=== PATIENT | female | born 1995 | race African-American/Black ===

== ENCOUNTER 2020-06-06 05:10 | Emergency (ER) | payer OTHER ==
[~2020-06-06] VITALS: Ht 165.1 cm; Wt 86.5 kg
[2020-06-06 05:15] VITALS: BP 137/86
--- NOTE | 2020-06-06 05:32 | PHYS DOC ---
Adult General HPI HPI Patient is an otherwise healthy 25-year-old female who presents with a chief complaint of Covid exposure. 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 States she has been on quarantine. States over the last couple of days she has had some body aches and had one bout of nonbilious nonbloody emesis. Denies headache, fever, cough, chest pain, shortness of breath, abdominal pain, diarrhea, dysuria, hematuria or blood in the stool. States she had taken any medicines at home for this. Review of Systems Review of Systems Review of systems otherwise unremarkable except noted in HPI. Physical Exam Physical Exam Constitutional: Well developed, well nourished, no acute distress, non-toxic appearance. [] HENT: Normocephalic, atraumatic, bilateral external ears normal, oropharynx moist, no oral exudates, nose normal. [] Eyes: conjunctiva normal, no discharge. [] Neck: Normal range of motion, no tenderness, supple, no stridor. [] Cardiovascular:Heart rate regular rhythm, no murmur [] Lungs & Thorax: Bilateral breath sounds clear to auscultation [] Abdomen: soft, no tenderness, no masses, no pulsatile masses. [] Skin: Warm, dry, no erythema, no rash. [] Extremities: No tenderness, no cyanosis, no clubbing, ROM intact, no edema. [] Neurologic: Alert and oriented X 3, normal motor function, normal sensory function, no focal deficits noted. [] Psychologic: Affect normal, judgement normal, mood normal. [] EKG EKG [] Radiology/Procedures Radiology/Procedures [] Heart Score Risk Factors: Risk Factors: DM, Current or recent (<one month) smoker, HTN, HLP, family history of CAD, obesity. Risk Scores: Risk Factors: DM, Current or recent (<one month) smoker, HTN, HLP, family history of CAD, obesity. Course & Med Decision Making Course & Med Decision Making Patient is a 25-year-old female who presents with Covid exposure, body aches and one episode of nausea and vomiting Vital signs not concerning. Physical exam noted above. Patient declined need for any nausea medicine, Tylenol or ibuprofen. Covid swab. Discussed Covid, and Covid quarantine with patient. Advised that the Covid test would be back in approximately 24 to 48 hours and she would be advised. Gave all quarantine information. Advised to let her superiors know that she is still under quarantine since she is symptomatic and had an exposure. Advised to let her roommate know that she also should be quarantined until her results of came in. Advised if she was positive then her roommate would also have to follow quarantine procedures. Advised to call her primary care physician to discuss ED visit and set of a post ER follow-up visit after quarantine was over. Advised she could use [id number] Tylenol, ibuprofen and cold medicines as needed. Advised to come back to the ED with any new or concerning symptoms. Patient grateful, verbalized understanding and agreed with plan of discharge. [] Dragon Disclaimer Dragon Disclaimer This electronic medical record was generated, in whole or in part, using a voice recognition dictation system. Departure Departure: Disposition: 01 DC HOME SELF CARE/HOMELESS Condition: GOOD Referrals: PCP,UNKNOWN (PCP) Additional Instructions: You have been tested for COVID-19. It is an infection caused by a new type of coronavirus. COVID-19 will cause cold-like or mild flu symptoms in most. It can cause more severe symptoms like problems breathing in some. There is no treatment for COVID-19. The body will clear the infection over time. Self-care will help to ease discomfort. Steps to Take: Self-Care Rest as needed. Healthy habits may help you feel better. Steps include: Choose healthy foods including fruits and vegetables. Drink water throughout the day. Get plenty of sleep each night. If you smoke, try to quit. It may ease breathing. Avoid alcohol. Keep Others Healthy The virus can spread to others. Droplets are released every time you sneeze or cough. The droplets can get into the mouth, nose, or eyes of people near you and lead to infection. To lower the chances of spreading COVID-19 to others: Stay at home until your doctor has said it is safe to leave. If you tested positive this will mean staying isolated until both of the following are true: At least 7 days have passed since the start of illness. You are free of fever for at least 72 hours without the use of medicine. During this time: - Avoid public areas, events, or transportation. Do not return to work or school until your doctor has said it is safe to do so. - Call ahead if you need to go to a medical center. Let them know you may have COVID-19. It will help them guide you where to go. They may also ask you to wear a facemask when you come to the office. - If you call for emergency medical services, let them know you may have COVID- 19. While at home: - Try to avoid close contact with others. Stay about 6 feet away. - If possible, spend most of your time in a separate room from others. - Use a face mask if you will be in close contact with others such as sharing a room or vehicle. - Have someone wipe down common surfaces in the home. Use household service learning coordinator every day on areas like doorknobs, counters, or sinks. - Cough or sneeze into a tissue. Throw the tissue away right after use. If a tissue is not available, cough or sneeze into your elbow. - Wash your hands often. Wash them after sneezing or coughing. Use soap and water and wash for at least 20 seconds. Alcohol based hand boat cleaner can be used if soap and water is not available. - Do not prepare food for others. Avoid sharing personal items like forks, spoons, or toothbrushes. - Avoid close contact with pets while you are sick. There is no evidence of the virus passing to pets. This is a safety step until more is known about this virus. Isolation can be frustrating. Social interaction can help. Keep in touch with friends and family through phone and tech options. You can still interact with others in your home, just keep a safe distance of about 6 feet. Follow-up: Your doctors office will check in with you to see if there are any changes in your health. You may be asked to keep track of symptoms to share with them. They will also let you know when you are clear to be in public again. Problems to Look Out For: Contact your doctor if your recovery is not going as you expect. Get emergency care if you have problems such as: - Trouble breathing - Nonstop chest pain or pressure - Changes in awareness, confusion, or problems waking - Lips or face have bluish color - Worsening of symptoms If you think you have an emergency, call for emergency medical services right away. As taken from [facility],KESHA Little 30, 2021 05:32
--- NOTE | 2020-06-08 10:10 | NUR ---
IP: notified patient of COVID result.
== END 2020-06-06 05:45 | disposition home or self-care (01) ==
LOC: ER 05:10
DX: R11.2 Nausea with vomiting, unspecified (principal); M79.10 Myalgia, unspecified site; Z20.822 Contact with and (suspected) exposure to COVID-19
CPT/HCPCS: 99283; C9803; U0003

== ENCOUNTER 2020-08-28 15:17 | Emergency (ER) | payer OTHER ==
[~2020-08-28] VITALS: Ht 165.1 cm; Wt 86.5 kg
[2020-08-28 15:17] VITALS: BP 120/73
--- NOTE | 2020-08-28 15:50 | RAD ---
AP, oblique and sunrise, and lateral views of the right knee were obtained. Indication: Pain after injury Comparison: none. Findings: No fracture, dislocation, significant degenerative changes, or effusion is seen. Impression: 1. Unremarkable examination of the right knee. Electronically signed by: Dustin Barnhart MD (08/28/2020 3:48 PM) [id number]
[2020-08-28] MEDS ORDERED: HYDROcodone/APAP 5/325MG 1 TAB TABLET PO ONE (16:30)
[2020-08-28] MEDS ORDERED: HYDROcodone/APAP 5/325MG 1 TAB TABLET ONE (16:34)
[2020-08-28] MEDS ORDERED: HYDR-2155 PO (16:34)
--- NOTE | 2020-08-28 16:36 | PHYS DOC ---
Past History Past Medical History: No Pertinent History Past Surgical History: No Surgical History Alcohol Use: None General Adult EDM: Chief Complaint: KNEE INJURY HPI: HPI: Patient is a 25-year-old female with right knee pain and swelling. Patient was at work and fell forward landing onto her anterior knee below her patella onto concrete. Has been able to ambulate with pain and limp. Denies prior injury to that knee. Otherwise been well. Review of Systems: Review of Systems: All other systems within normal limits except for as noted in the HPI Allergies: Allergies: Allergies Coded Allergies Type Severity Reaction Last Updated Verified No Known Drug Allergies 06/06/20 No Physical Exam: PE: Constitutional: Well developed, well nourished, no acute distress, non-toxic appearance. [] HENT: Normocephalic, atraumatic, bilateral external ears normal, nose normal. [] Eyes: PERRLA, conjunctiva normal, no discharge. [] Neck: No rigidity, supple, no stridor. [] Cardiovascular: Regular rate and rhythm, brisk cap refill [] Lungs & Thorax: Non labored symmetric respirations, no tachypnea or respiratory distress [] Abdomen: Soft, nondistended. Skin: Warm, dry, no erythema, no rash. [] Back: Unremarkable Extremities: No deformities, range of motion grossly intact, no lower extremity edema. Right knee exam, joint effusion with ecchymosis, range of motion intact with pain. Tenderness over lower patella and anterior tibial plateau. patient able to extend knee [] Neurologic: Alert and oriented X 3, no focal deficits noted. [] Psychologic: Affect normal, judgement normal, mood normal. [] Current Patient Data: Vital Signs: Vital Signs Date Time Temp Pulse Resp B/P (MAP) Pulse Ox O2 Delivery O2 Flow Rate FiO2 08/28/20 15:17 98.0 77 14 120/73 (89) 100 Room Air EKG: EKG: [] Radiology/Procedures: Radiology/Procedures: PROCEDURE: KNEE RIGHT 4V AP, oblique and sunrise, and lateral views of the right knee were obtained. Indication: Pain after injury Comparison: none. Findings: No fracture, dislocation, significant degenerative changes, or effusion is seen. Impression: 1. Unremarkable examination of the right knee. [] Heart Score: C/O Chest Pain: No Risk Factors: Risk Factors: DM, Current or recent (<one month) smoker, HTN, HLP, family history of CAD, obesity. Risk Scores: Score 0 - 3: 2.5% MACE over next 6 weeks - Discharge Home Score 4 - 6: 20.3% MACE over next 6 weeks - Admit for Clinical Observation Score 7 - 10: 72.7% MACE over next 6 weeks - Early Invasive Strategies Course & Med Decision Making: Course & Med Decision Making X-ray read as negative parents patient has significant swelling and bruising of the knee with a fragment on the anterior tibial plateau that is not mentioned in the feet. It appears like it might be an old injury. Patient denies any prior traumatic injuries to her right knee. Discussed with orthopedist Dr. Lara who thinks that there is concern for a tibial plateau fracture. Recommends knee immobilization and follow-up in the clinic. Gia Disclaimer: Gia Disclaimer: This electronic medical record was generated, in whole or in part, using a voice recognition dictation system. Departure Departure: Impression: Primary Impression: Fracture of tibial plateau, closed Disposition: 01 HOME / SELF CARE / HOMELESS Condition: STABLE Referrals: SAGAR MCNAMARA MD (PCP) Patient Instructions: Tibial Plateau Fracture, Undisplaced, Adult Additional Instructions: Follow-up with [facility]. Call to schedule appointment on Monday at [phone] Scripts Hydrocodone Bit/Acetaminophen (HYDROCODONE-APAP 5-325 ) 1 Each Tablet 1 TAB PO PRN Q6HRS PRN for PAIN for 5 Days, #15 TAB 0 Refills Caution: this medication can make you drowsy. Do not drive or operate heavy machinery when using this medication. Prov: PHONG LIZ MD 08/28/20 PHONG LIZ MD Aug 28, 2020 16:36
== END 2020-08-28 16:46 | disposition home or self-care (01) ==
LOC: ER 15:17
DX: S82.141A Displaced bicondylar fracture of right tibia, initial encounter for closed fracture (principal); W18.39XA Other fall on same level, initial encounter; Y93.89 Activity, other specified; Y92.69 Other specified industrial and construction area as the place of occurrence of the external cause; Y99.0 Civilian activity done for income or pay
CPT/HCPCS: 29505; 73564; 99283

== ENCOUNTER 2021-01-10 19:54 | Emergency (ER) | payer OTHER ==
[~2021-01-10] VITALS: Ht 165.1 cm; Wt 86.5 kg
[~2021-01-10 19:54] MED LIST: HYDR-2155 PO
[2021-01-10] MEDS ORDERED: diazePAM 5 MG TABLET. PO ONE (20:30)
[2021-01-10 20:54] VITALS: BP 125/70
--- NOTE | 2021-01-10 21:00 | PHYS DOC ---
Past History Past Medical History: No Pertinent History (IZABEL LEON APRN) Past Surgical History: Other Additional Past Surgical Histo: lower right leg (IZABEL LEON APRN) Alcohol Use: None (IZABEL LEON APRN) Adult General Chief Complaint Chief Complaint: ANXIETY/PANIC ATTACK HPI HPI Patient is a 24-year-old female presents emergency department reporting having a panic attack today. Patient reports there is a lot going on in her life and she started breathing heavily and felt as if she was going to pass out. Patient reports her roommate came home and seen her in the state brought her here to the emergency department for evaluation. Denies homicidal or suicidal ideation. Denies chest pain, shortness of breath, chest or nasal congestion, recent fever or chills. Patient reports her last menstrual cycle was 2 weeks ago with normal duration of flow. Patient denies any other physical complaints or physical concerns. (IZABEL LEON APRN) Review of Systems Review of Systems 14 body systems of review of systems have been reviewed. See HPI for pertinent positives and negative responses, otherwise all other systems are negative, nonpertinent or noncontributory. Constitutional: Negative except as outlined in HPI above. Skin: Negative except as outlined in HPI above. Eyes: Negative except as outlined in HPI above. HENT: Negative except as outlined in HPI above. Respiratory: Negative except as outlined in HPI above. Cardiovascular: Negative except as outlined in HPI above. GI: Negative except as outlined in HPI above. : Negative except as outlined in HPI above. Musculoskeletal: Negative except as outlined in HPI above. Integument: Negative except as outlined in HPI above. Neurologic: Negative except as outlined in HPI above. Endocrine: Negative except as outlined in HPI above. Lymphatic: Negative except as outlined in HPI above. Psychiatric: Negative except as outlined in HPI above. (IZABEL LEON APRN) Current Medications Current Medications Current Medications Medications (Trade) Dose Ordered Sig/Marianna Start Time Stop Time Status Last Admin Dose Admin Diazepam (Valium) 10 mg 1X ONCE 01/10/21 20:30 01/10/21 20:31 DC 01/10/21 20:34 10 MG (IZABEL LEON APRN) Allergies Allergies Allergies Coded Allergies Type Severity Reaction Last Updated Verified No Known Drug Allergies 06/06/20 No (IZABEL LEON APRN) Physical Exam Physical Exam Constitutional: Well developed, well nourished, no acute distress, non-toxic appearance. 25-year-old female in no apparent distress. HENT: Normocephalic, atraumatic. Eyes: Conjunctiva normal, no discharge. Neck: Normal range of motion, no stridor. Cardiovascular: No cyanosis appreciated, distal cap refill less than 2 seconds. Lungs & Thorax: Patient is in no respiratory distress, no audible adventitious lung sounds appreciated. Abdomen: Nontender, no abnormalities noted. Skin: Warm, dry, no erythema, no rash. Back: No tenderness, no deformities. Extremities: No tenderness, no cyanosis, no clubbing, ROM intact, no edema. Neurologic: Alert and oriented X 3, normal motor function, normal sensory function, no focal deficits noted. Psychologic: Affect normal, judgement normal, mood normal. (IZABEL LEON APRN) Current Patient Data Vital Signs Vital Signs Date Time Temp Pulse Resp B/P (MAP) Pulse Ox O2 Delivery O2 Flow Rate FiO2 01/10/21 20:04 98.4 105 16 138/98 98 Room Air (IZABEL LEON APRN) EKG EKG [] (IZABEL LEON APRN) Radiology/Procedures Radiology/Procedures [] (IZABEL LEON APRN) Heart Score C/O Chest Pain: No Risk Factors: Risk Factors: DM, Current or recent (<one month) smoker, HTN, HLP, family history of CAD, obesity. Risk Scores: Risk Factors: DM, Current or recent (<one month) smoker, HTN, HLP, family history of CAD, obesity. (IZABEL LEON APRN) Course & Med Decision Making Course & Med Decision Making Pertinent Labs and Imaging studies reviewed. (See chart for details) 24-year-old female, vital signs reviewed, presents emergency department complaining of a panic attack at home. Patient's physical examination and explanation of events consistent with panic attacks. Will give 10 mg Valium and after period of time reevaluate patient. After period of time reevaluation of patient, patient reports she feels much better now states that she feels as though she is able to handle her anxiety is at home. Discussed at length with patient strict follow-up with primary care for ongoing evaluation of panic attacks. Patient is amenable to ED discharge planning. Discussed with the patient all findings and diagnostic testing as well as the need to follow-up with their primary care provider for further evaluation and treatment or return to the ED if any new or worsening symptoms. Strict return precautions were also discussed at length, the patient voiced understanding and agreement with the discharge planning. The patient was nontoxic in appearance, in no apparent distress, and hemodynamically stable at the time of disposition. (IZABEL LEON APRN) Course & Med Decision Making Did not see or evaluate patient. Did not discussed patient with SUGAR PLANTATION MANAGER. Agree with SUGAR PLANTATION MANAGER's work-up and disposition per note. (KESHA NELSON MD) Dragon Disclaimer Dragon Disclaimer This electronic medical record was generated, in whole or in part, using a voice recognition dictation system. (IZABEL LEON APRN) Departure Departure: Impression: Primary Impression: Panic attack due to exceptional stress Disposition: HOME / SELF CARE / HOMELESS Condition: GOOD Referrals: SAGAR MCNAMARA MD (PCP) Patient Instructions: Anxiety and Panic Attacks Additional Instructions: You were seen today in the emergency department after a panic attack. You had stated you have been under a tremendous amount of stress. You were given a 10 mg Valium today in the emergency department. As we discussed at length, please follow-up with your primary care physician for ongoing management of your panic attacks. You may choose to see Dr. Sagar Mcnamara or you may use the [facility] group here at this Bldg. [address] [place] [address], [facility] [address], their phone number is area code [phone]. Please call Monday for an appointment. Thank you for visiting our Emergency Department. It was a pleasure taking care of you today in the emergency department and we appreciate you trusting us with your care. If any additional problems come up don't hesitate to return to visit us. Please follow up with your primary care provider so they can plan additional care if needed and know about the problem that you had. If symptoms worsen come back to the Emergency Department. Any concerning symptoms that start such as chest pain, shortness of air, weakness or numbness on one side of the body, running high fevers or any other concerning symptoms return to the ER. IZABEL LEON APRN Jan 10, 2021 21:00 KESHA NELSON MD Jan 10, 2021 23:36
== END 2021-01-10 21:16 | disposition home or self-care (01) ==
LOC: ER 19:54
DX: F43.0 Acute stress reaction (principal)
CPT/HCPCS: 99283

== ENCOUNTER 2021-01-22 04:32 | Emergency (ER) | payer OTHER ==
[~2021-01-22] VITALS: Ht 165.1 cm; Wt 89.8 kg
--- NOTE | 2021-01-22 05:07 | PHYS DOC ---
Past History Past Medical History: No Pertinent History Past Surgical History: Other Additional Past Surgical Histo: right knee Additional Smoking Information: Vaps Alcohol Use: Occasionally General Adult EDM: Chief Complaint: MECHANICAL FALL HPI: HPI: 25-year-old female presents with left thumb pain. The patient states that she was walking and there was some water on the floor and she slipped on it and fell. She came down onto her left thumb. She had immediate pain and when she looked at her thumb it looked like it was "sideways". She pulled the finger ba ck straight and then came to the emergency room. She has bruising at the DIP and it is still painful. She denies any other injuries at this time. Review of Systems: Review of Systems: Constitutional: Denies fever or chills Eyes: Denies change in visual acuity HENT: Denies nasal congestion or sore throat Respiratory: Denies cough or shortness of breath Cardiovascular: Denies chest pain or edema GI: Denies abdominal pain, nausea, vomiting, bloody stools or diarrhea : Denies dysuria Musculoskeletal: Left thumb pain Integument: Denies rash Neurologic: Denies headache, focal weakness or sensory changes Endocrine: Denies polyuria or polydipsia Lymphatic: Denies swollen glands Psychiatric: Denies depression or anxiety Allergies: Allergies: Allergies Coded Allergies Type Severity Reaction Last Updated Verified No Known Drug Allergies 06/06/20 No Physical Exam: PE: Constitutional: Well developed, well nourished, in pain, non-toxic appearance. [] HENT: Normocephalic, atraumatic, bilateral external ears normal, oropharynx moist, no oral exudates, nose normal. [] Eyes: PERRLA, EOMI, conjunctiva normal, no discharge. [] Neck: Normal range of motion, no tenderness, supple, no stridor. [] Cardiovascular:Heart rate regular rhythm, no murmur [] Lungs & Thorax: Bilateral breath sounds clear to auscultation [] Abdomen: Bowel sounds normal, soft, no tenderness, no masses, no pulsatile masses. [] Skin: Warm, dry, no erythema, no rash. [] Back: No tenderness, no CVA tenderness. [] Extremities: Ecchymosis, swelling, tenderness distal left thumb [] Neurologic: Alert and oriented X 3, normal motor function, normal sensory function, no focal deficits noted. [] Psychologic: Affect normal, judgement normal, mood normal. [] Current Patient Data: Vital Signs: Vital Signs Date Time Temp Pulse Resp B/P (MAP) Pulse Ox O2 Delivery O2 Flow Rate FiO2 01/22/21 04:41 97.9 93 18 122/80 (94) 99 Room Air EKG: EKG: [] Radiology/Procedures: Radiology/Procedures: [] Impressions: Exam: Views of the left hand Indication: Reason: left thumb pain r/t fall / Spl. Instructions: / History: . Comparison: Unavailable. Findings: No evidence of fracture. Joint spaces are preserved. Normal alignment is maintained throughout the hand. Soft tissues are unremarkable. Impression: No acute osseous injury of the left hand. Electronically signed by: Rhys Dailey DO (01/22/2021 5:43 AM) [facility] DICTATED AND SIGNED BY: RHYS DAILEY DO DATE: 01/22/21 0541 CC: GUSTAVO PARIS DO; BRIDGET HERNANDEZ ~MTH0 0 Heart Score: C/O Chest Pain: N/A Risk Factors: Risk Factors: DM, Current or recent (<one month) smoker, HTN, HLP, family history of CAD, obesity. Risk Scores: Score 0 - 3: 2.5% MACE over next 6 weeks - Discharge Home Score 4 - 6: 20.3% MACE over next 6 weeks - Admit for Clinical Observation Score 7 - 10: 72.7% MACE over next 6 weeks - Early Invasive Strategies Course & Med Decision Making: Course & Med Decision Making Pertinent Labs and Imaging studies reviewed. (See chart for details) The official radiology read does not show fracture. It is possible but the patient dislocated and relocated distal from. I will place her in a splint and have her follow-up with orthopedics as needed. She is stable for discharge at this time. Dragon Disclaimer: Dragzoran Disclaimer: This electronic medical record was generated, in whole or in part, using a voice recognition dictation system. Departure Departure: Impression: Primary Impression: Thumb dislocation Qualified Codes: S63.105A - Unspecified dislocation of left thumb, initial encounter Disposition: HOME / SELF CARE / HOMELESS Condition: STABLE Referrals: BRIDGET HERNANDEZ (PCP) Patient Instructions: Thumb Dislocation, [id number] Scripts Hydrocodone/Acetaminophen (Hydrocodone-Acetamin 5-325 mg) 1 Each Tablet 1 EACH PO Q4-6HRS PRN for PAIN, #10 TAB Prov: GUSTAVO PARIS DO 01/22/21 GUSTAVO PARIS DO Jan 22, 2021 05:07
[2021-01-22] MEDS ORDERED: HYDROcodone/APAP 7.5/325MG 1 TAB TABLET PO ONE (05:15)
--- NOTE | 2021-01-22 05:45 | RAD ---
Exam: Views of the left hand Indication: Reason: left thumb pain r/t fall / Spl. Instructions: / History: . Comparison: Unavailable. Findings: No evidence of fracture. Joint spaces are preserved. Normal alignment is maintained throughout the [address]. Soft tissues are unremarkable. Impression: No acute osseous injury of the left hand. Electronically signed by: Misha Strickland DO (01/22/2021 5:43 AM) [facility]
[2021-01-22] MEDS ORDERED: HYDR-2759 PO (05:50)
[2021-01-22 05:55] VITALS: BP 120/74
== END 2021-01-22 06:05 | disposition home or self-care (01) ==
LOC: ER 04:32
DX: S63.105A Unspecified dislocation of left thumb, initial encounter (principal); W01.0XXA Fall on same level from slipping, tripping and stumbling without subsequent striking against object, initial encounter; Z59.0 Homelessness; Y93.89 Activity, other specified; Y92.89 Other specified places as the place of occurrence of the external cause; Y99.8 Other external cause status
CPT/HCPCS: 29130; 73130; 99283

== ENCOUNTER 2021-05-04 12:39 | Emergency (ER) | payer OTHER ==
[~2021-05-04] VITALS: Ht 165.1 cm; Wt 89.8 kg
[~2021-05-04 12:39] MED LIST changes: +HYDR-2759 PO
[2021-05-04 13:35] VITALS: BP 132/86
--- NOTE | 2021-05-04 14:02 | PHYS DOC ---
Past History Past Medical History: No Pertinent History (RAJESH ROSE APRN) Past Surgical History: Other Additional Past Surgical Histo: right knee (RAJESH ROSE APRN) Alcohol Use: None (RAJESH ROSE APRN) General Adult EDM: Chief Complaint: COUGH HPI: HPI: Patient is a 26-year-old female who presents to the emergency department for body aches, headache and a nonproductive cough that started today. Patient re ports that she had a positive sick exposure with COVID-19. Patient denies any fevers, loss of taste or smell, nausea, vomiting, shortness of breath or chest pain. (RAJESH ROSE APRN) Review of Systems: Review of Systems: Constitutional: See HPI HENT: See HPI Respiratory: See HPI Cardiovascular: See HPI GI: See HPI Musculoskeletal: See HPI Neurologic: See HPI (RAJESH ROSE APRN) Allergies: Allergies: Allergies Coded Allergies Type Severity Reaction Last Updated Verified No Known Drug Allergies 06/06/20 No (RAJESH ROSE APRN) Physical Exam: PE: Constitutional: Well developed, well nourished, no acute distress, non-toxic appearance. [] HENT: Normocephalic, atraumatic, bilateral external ears normal, oropharynx moist, no oral exudates, nose normal. [] Eyes: PERRL, EOMI, conjunctiva normal, no discharge. [] Neck: Normal range of motion, no tenderness, no neutral rigidity, supple, no stridor. [] Cardiovascular:Heart rate regular rhythm, no murmur [] Lungs & Thorax: Bilateral breath sounds clear to auscultation [] Abdomen: Bowel sounds normal, soft, no tenderness, no masses, no pulsatile masses. [] Skin: Warm, dry, no erythema, no rash. [] Back: Normal range of motion Extremities: No tenderness, no cyanosis, no clubbing, ROM intact, no edema. [] Neurologic: Alert and oriented X 3, normal motor function, normal sensory function, no focal deficits noted. [] Psychologic: Affect normal, judgement normal, mood normal. [] (RAJESH ROSE APRN) Current Patient Data: Labs: Laboratory Tests Test 05/04/21 15:13 Influenza Type A (Rapid) Negative Influenza Type B (Rapid) Negative Vital Signs: Vital Signs Date Time Temp Pulse Resp B/P (MAP) Pulse Ox O2 Delivery O2 Flow Rate FiO2 05/04/21 13:35 98.8 89 16 132/86 (101) 99 Room Air (RAJESH ROSE APRN) EKG: EKG: [] (RAJESH ROSE APRN) Radiology/Procedures: Radiology/Procedures: []PROCEDURE: PORTABLE CHEST 1V INDICATION: Reason: cough, pui / Spl. Instructions: / History: COMPARISON: None. FINDINGS: Single view of chest obtained. No focal airspace consolidation. Cardiomediastinal contour unremarkable. No acute osseous abnormality. IMPRESSION: * No focal airspace consolidation or edema. Electronically signed by: Erasto Morse MD (05/04/2021 2:24 PM) [id number] DICTATED AND SIGNED BY: ERASTO MORSE MD DATE: 05/04/211422 CC: BRIDGET HERNANDEZP-C; RAJESH ROSE APRN ~MTH0 0 (RAJESH ROSE APRN) Heart Score: C/O Chest Pain: No Risk Factors: Risk Factors: DM, Current or recent (<one month) smoker, HTN, HLP, family history of CAD, obesity. Risk Scores: Score 0 - 3: 2.5% MACE over next 6 weeks - Discharge Home Score 4 - 6: 20.3% MACE over next 6 weeks - Admit for Clinical Observation Score 7 - 10: 72.7% MACE over next 6 weeks - Early Invasive Strategies (RAJESH ROSE APRN) Course & Med Decision Making: Course & Med Decision Making Pertinent Labs and Imaging studies reviewed. (See chart for details) [] Presents to the emergency department for body aches, headache and a nonpr oductive cough patient had a positive COVID-19 exposure. Patient's vital signs are stable and she is in no acute distress. Patient will be tested for COVID- 19, influenza and have a chest x-ray. Rapid influenza test was negative. Patient's chest x-ray showed no acute findings. Patient's COVID-19 results will be available in 1 to 2 days. She is advised to self isolate until she receives these results. Patient was educated on symptomatic treatment. I discussed with patient all findings and diagnostic testing as well as the need to follow- up with PCP for further evaluation and treatment or return to the ER if any new or worsening symptoms. Strict return precautions were also discussed at length. Patient voiced understanding and agreement with the plan. Patient is hemodynamically stable at the time of disposition. (RAJESH ROSE APRN) Jasmineon Disclaimer: Gia Disclaimer: This electronic medical record was generated, in whole or in part, using a voice recognition dictation system. (RAJESH ROSE APRN) Attending Co-Sign The patient was seen and interviewed as well as examined at the bedside. The chart was reviewed. The case was discussed. Agree with the plan of care. (GUSTAVO PARIS DO) Departure Departure: Impression: Primary Impression: Person under investigation for COVID-19 Disposition: HOME / SELF CARE / HOMELESS Condition: GOOD Referrals: BRIDGET HERNANDEZ (PCP) Patient Instructions: Myalgia, Adult Additional Instructions: You were seen in the emergency department today for body aches, headache and a cough. Your rapid influenza test was negative. You had a chest x-ray performed that showed no acute findings. Your Covid test is pending and you will be notified of your results via telephone in approximately 1 to 2 days. Please self isolate until you receive these results. For your pain or fevers please take Tylenol and/or ibuprofen. For your cough you can take Delsym [id number]. Increase your fluids and rest. I would advise you to purchase a pulse oximeter and monitor your oxygen saturations at home. Please return to the emergency department if your oxygen saturation drops below 90%. Please follow-up with your primary care provider tomorrow regarding your ER visit. Please return to the emergency department if you develop high fevers refractory to treatment, intractable nausea or vomiting, chest pain, shortness of breath. RAJESH ROSE APRN May 04, 2021 14:02 GUSTAVO PARIS DO May 05, 2021 06:49
--- NOTE | 2021-05-04 14:26 | RAD ---
INDICATION: Reason: cough, pui / Spl. Instructions: / History: COMPARISON: None. FINDINGS: Single view of chest obtained. No focal airspace consolidation. Cardiomediastinal contour unremarkable. No acute osseous abnormality. IMPRESSION: * No focal airspace consolidation or edema. Electronically signed by: Noé Pyle MD (05/04/2021 2:24 PM) [id number]
[2021-05-04 16:00] LABS: INFLUENZA A PATIENT NEGATIVE (NEGATIVE); INFLUENZA B PATIENT NEGATIVE (NEGATIVE)
== END 2021-05-04 16:17 | disposition home or self-care (01) ==
LOC: ER 12:39
DX: U07.1 COVID-19 (principal)
CPT/HCPCS: 71045; 87804; 99284; C9803; U0003